=== PATIENT | male | born 1970 | race Hispanic/Latino ===

== ENCOUNTER 2024-10-07 20:45 | Emergency (ER) | payer OTHER ==
[~2024-10-07] VITALS: Ht 167.6 cm; Wt 93.0 kg
[2024-10-07 20:45] VITALS: PULSE 73; RESP 16; TEMP 98.3; O2SAT 98
[2024-10-07] MEDS ORDERED: AMOX TR-K CLV1 EAC2 PO (21:21)
[2024-10-07] MEDS: AMOXICILLIN/CLAVULANATE K 875 MG TAB PO STA (21:26)
[2024-10-07] MEDS: TETANUS/DIPHTHERIA TOX ADULT 0.5 ML SYR IM ONE (21:40)
== END 2024-10-07 21:47 | disposition home or self-care (01) ==
LOC: ER 21:11
DX: S00.87XA Other superficial bite of other part of head, initial encounter (principal); W54.0XXA Bitten by dog, initial encounter; Y92.89 Other specified places as the place of occurrence of the external cause
CPT/HCPCS: 90714; 99283